=== PATIENT | female | born 2000 | race Caucasian/White ===

== ENCOUNTER → 2021-04-08 | Outpatient (CLI) | payer OTHER ==
[~2021-04-08] MED LIST: ALBU2.5V8 INH; LORA10TA65 PO; METO50TA4 PO; TOPI50TA38 PO
== END ==
LOC: SPEC 11:22 → EDSTATUS 04-16 11:02
PROVIDERS: ATTEND Obstetrics & Gynecology
DX: Z01.419 Encounter for gynecological examination (general) (routine) without abnormal findings (principal)
CPT/HCPCS: 88175

== ENCOUNTER → 2021-05-23 | Outpatient (CLI) | payer OTHER ==
[~2021-05-23] VITALS: Ht 165.1 cm; Wt 68.0 kg
[~2021-05-23] MED LIST changes: +SINCALIDE 1.36 MCG in IV NORMAL SALINE 50ML 30 ML IV ONE
--- NOTE | 2021-05-23 08:18 | RAD ---
EXAM: Abdomen sonogram. HISTORY: Epigastric pain. TECHNIQUE: Sonographic imaging of the abdomen was performed. COMPARISON: None. FINDINGS: The liver is normal in size. No focal hepatic lesion is seen. The gallbladder is unremarkab le. The common bile duct is normal in caliber. The right kidney is unremarkable. The pancreas and inf erior vena cava are partially obscured due to bowel gas. IMPRESSION: No acute sonographic finding. Electronically signed by: Betty Evans MD (05/23/2021 8:16 AM) [id number]
--- NOTE | 2021-05-23 10:25 | RAD ---
EXAM: Nuclear hepatobiliary scan. HISTORY: Pain. TECHNIQUE: Following intravenous administration of 5.5 mCi Tc 99m Choletec, anterior images of the ab domen were obtained at five minute intervals through one hour. Subsequently, 1.4 mcg CCK was administ ered and additional images to assess gallbladder ejection fraction were obtained. FINDINGS: There is prompt radiotracer uptake by the liver. No focal defect is seen. There is normal e xcretion into the biliary tree. The gallbladder is visualized within 10 minutes and there is free sarwat w into the duodenum. The gallbladder ejection fraction is 75 percent. IMPRESSION: Normal radionuclide biliary scan. Electronically signed by: Betty Evans MD (05/23/2021 10:22 AM) [id number]
== END ==
LOC: US 06:38
PROVIDERS: ATTEND Internal Medicine Gastroenterology
DX: R10.13 Epigastric pain (principal); R10.12 Left upper quadrant pain
CPT/HCPCS: 76705; 78227; A9537; J2805

== ENCOUNTER → 2021-06-27 | Day surgery (SDC) | payer OTHER ==
[~2021-06-27] VITALS: Ht 165.1 cm; Wt 70.0 kg
[~2021-06-27] MED LIST changes: +DICL50TA2 PO; +IV RINGERS,LACTATED 1000ML 1,000 ML IV SCH; +LIDOCAINE 2% PF 5 ML VIAL. ONE; +PROPOFOL 10 MG/ML (20ML) VIAL. IV ONE; -SINCALIDE 1.36 MCG in IV NORMAL SALINE 50ML 30 ML IV ONE
[2021-06-27 11:37] VITALS: BP 123/80
[2021-06-27 12:18] VITALS: BP 117/69
--- NOTE | 2021-07-01 17:06 | PATHOLOGY ---
[facility] Accession Number: [id number] . 01 Material submitted: . ANTRUM - ANTRUM BX FOR H. PYLORI . 01 Clinical history: . ABDOMINAL PAIN EGD . 02 Diagnosis: Gastric biopsy, antrum: - Chronic gastritis, mild. (JPM:pit; 07/01/2021) P 07/01/2021 0904 [facility] . 02 Comment: Sections of the gastric antral biopsy show congestion and mild chronic inflammation. A properly controlled immunoperoxidase stain for Helicobacter is negative for Helicobacter organisms. (JPM:pit; 07/01/2021) . Special stain performed: Immunoperoxidase for Helicobacter on A1. . 02 Electronically signed: . Alexandre Ball MD, Pathologist NPI- [id number] . 01 Gross description: . The specimen is received in formalin, labeled "Daniel Quach, antrum BX for H-pylori" and consists of a little irregular tissue measuring 0.4 x 0.3 x 0.2 cm which is submitted in toto in A1. ([facility]; 06/28/2021) DKA/DKA 06/28/2021 1038 Local . 02 Pathologist provided ICD-10: K29.50 . 02 CPT . 150746, [id number] Specimen Comment: A courtesy copy of this report has been sent to [phone], [phone] Specimen Comment: [id number] Specimen Comment: Report sent to / DR PAREKH Specimen Comment: A duplicate report has been generated due to demographic updates. Performed at: [address], [place], [place] [id number] MD Louis Abarca MD Phone: [phone] Performed at: 02 [facility] [address], [place] [id number] MD Alexandre Ball MD Phone: [phone]
== END | disposition home or self-care (01) ==
LOC: ENDOS 11:12
PROVIDERS: ATTEND Surgery
DX: R10.13 Epigastric pain (principal); K29.50 Unspecified chronic gastritis without bleeding; K31.89 Other diseases of stomach and duodenum; J45.909 Unspecified asthma, uncomplicated; M19.90 Unspecified osteoarthritis, unspecified site; F41.9 Anxiety disorder, unspecified; F32.9 Major depressive disorder, single episode, unspecified; Z79.899 Other long term (current) drug therapy; Z98.890 Other specified postprocedural states; Z88.8 Allergy status to other drugs, medicaments and biological substances
CPT/HCPCS: 43239; 81025; J2704; 88305; 88342

== ENCOUNTER → 2021-10-03 | Outpatient (CLI) | payer OTHER ==
[2021-06-27 12:18] VITALS: BP 117/69
[~2021-10-03] MED LIST changes: -IV RINGERS,LACTATED 1000ML 1,000 ML IV SCH; -LIDOCAINE 2% PF 5 ML VIAL. ONE; -PROPOFOL 10 MG/ML (20ML) VIAL. IV ONE
[2021-10-06 02:07] LABS: ALTERNARIA <0.10 kU/L (Class 0); ASH 0.18 kU/L (Class 0/I); ASPERGILLUS <0.10 kU/L (Class 0); BERMUDA 0.21 kU/L (Class 0/I); CAT DANDER <0.10 kU/L (Class 0); CLADOSPORIUM <0.10 kU/L (Class 0); COCKROACH <0.10 kU/L (Class 0); CODFISH <0.10 kU/L (Class 0); CORN <0.10 kU/L (Class 0); COTTONWOOD 0.16 kU/L (Class 0/I); D PTERONYSSINUS <0.10 kU/L (Class 0); DOG DANDER <0.10 kU/L (Class 0); DUST MITE <0.10 kU/L (Class 0); EGG WHITE <0.10 kU/L (Class 0); ELM 0.44 kU/L (Class I); MAPLE 0.12 kU/L (Class 0/I); MILK <0.10 kU/L (Class 0); MULBERRY <0.10 kU/L (Class 0); NETTLE <0.10 kU/L (Class 0); OAK TREE <0.10 kU/L (Class 0); PEANUT <0.10 kU/L (Class 0); PENICILLIUM <0.10 kU/L (Class 0); RUSSIAN THISTLE <0.10 kU/L (Class 0); SCALLOP <0.10 kU/L (Class 0); SHEEP SORREL <0.10 kU/L (Class 0); SHRIMP <0.10 kU/L (Class 0); SOYBEAN <0.10 kU/L (Class 0); TIMOTHY GRASS 0.26 kU/L (Class 0/I); WALNUT <0.10 kU/L (Class 0); WHEAT <0.10 kU/L (Class 0)
[2021-10-07 08:32] LABS: IMMUNOGLUBULIN E 42
== END ==
LOC: LAB 15:06
PROVIDERS: ATTEND Nurse Practitioner
DX: J30.9 Allergic rhinitis, unspecified (principal)
CPT/HCPCS: 36415; 82785; 86003